=== PATIENT | female | born 1945 | race Caucasian/White ===

== ENCOUNTER 2019-02-06 21:01 | Outpatient (REF) | payer OTHER, SELFPAY ==
[2019-02-06 21:32] LABS: Creatinine,Urine 70.54 mg/dL
[2019-02-06 21:42] LABS: COMMENT (LAB VIEW ONLY) 69.92 mg/dL
== END 2019-02-06 21:21 ==
LOC: NCHCN 21:01
PROVIDERS: Visit Provider Nurse Practitioner Family
DX: N39.0 Urinary tract infection, site not specified (principal)
CPT/HCPCS: 82043; 82565; 82570

== ENCOUNTER 2019-04-11 18:30 | Outpatient (REF) | payer OTHER, SELFPAY | END 2019-04-11 18:50 | LOC: NCHCN 18:30 | PROVIDERS: Visit Provider Nurse Practitioner Family | DX: R82.90 Unspecified abnormal findings in urine (principal) | CPT/HCPCS: 87086 ==

== ENCOUNTER 2019-10-08 14:00 | Outpatient (REF) | payer MEDICARE, OTHER, SELFPAY ==
[2019-10-08 21:16] LABS: WBC 20-50 HPF (0-5)
[2019-10-08 21:17] LABS: C & S Indicated? C&S Done As Ordered; Epithelial Cells Moderate HPF (Negative); RBC >50 HPF (0-2)
== END 2019-10-08 14:20 ==
LOC: NCHCN 14:00
PROVIDERS: Visit Provider Nurse Practitioner Family
DX: R31.9 Hematuria, unspecified (principal)
CPT/HCPCS: 81015; 87086

== ENCOUNTER 2020-08-22 18:44 | Outpatient (REF) | payer MEDICARE, SELFPAY | END 2020-08-22 18:45 | disposition home or self-care (01) | LOC: NCHCN 18:44 | PROVIDERS: PCP Registered Nurse; Visit Provider Nurse Practitioner Family | DX: R35.0 Frequency of micturition (principal) | CPT/HCPCS: 87086 ==

== ENCOUNTER 2020-12-17 18:04 | Outpatient (REF) | payer MEDICARE, SELFPAY | END 2020-12-17 18:05 | disposition home or self-care (01) | LOC: NCHCN 18:04 | PROVIDERS: PCP Registered Nurse; Visit Provider Nurse Practitioner Family | DX: N39.0 Urinary tract infection, site not specified (principal) | CPT/HCPCS: 87086 ==

== ENCOUNTER 2021-05-01 13:46 | Outpatient (REF) | payer MEDICARE, SELFPAY | END 2021-05-01 13:47 | disposition home or self-care (01) | LOC: NCHCN 13:46 | PROVIDERS: PCP Registered Nurse; Visit Provider Nurse Practitioner Family | DX: R35.0 Frequency of micturition (principal) | CPT/HCPCS: 87086 ==

== ENCOUNTER 2021-07-15 15:09 | Outpatient (REF) | payer MEDICARE, SELFPAY ==
[2021-07-15 21:37] LABS: Iron 93 ug/dL (50-170); Total Iron Binding Capacity 287 ug/dL (250-450); Transferrin Sat 32 % (15-50)
[2021-07-15 21:46] LABS: Abs Immature Grans 0.01 10^3/uL (0.0-0.06); Absolute Basophil Count 0.05 10^3/uL (0.0-0.2); Absolute Eosinophil Count 0.06 10^3/uL (0.0-0.7); Absolute Lymphocyte Count 0.95 10^3/uL (1.2-3.4); Absolute Monocyte Count 0.22 10^3/uL (0.1-0.8); Absolute Neutrophil Count 1.37 10^3/uL (1.2-6.7); Basophils % 1.9; Eosinophils % 2.3; HCT 32.6 % (36.0-46.0); HGB 10.7 g/dL (11.2-15.7); Immature Grans % 0.4; Lymphocytes % 35.7; MCH 37.3 pg (27.0-33.0); MCHC 32.8 % (32.0-36.0); MCV 114 fL (80-95); MPV 11.8 fL (8.0-11.0); Monocytes % 8.3; Neutrophils % 51.4; Platelet Count 344 10^3/uL (130-400); RBC 2.87 10^6/uL (3.93-5.22); RDW 13.1 % (11.7-14.6); RDW-SD 54.7 fL; WBC 2.66 10^3/uL (4.4-10.8)
[2021-07-15 21:59] LABS: Ferritin 135 ng/mL (8-252); TSH (W/Ref FT4) 2.32 uIU/mL (0.36-3.74); Vitamin B12 470 pg/mL (193-986)
[2021-07-15 22:00] LABS: Folate > 20.0 ng/mL (8.6-20.0)
[2021-07-15 22:39] LABS: Diff Comment RBC Morph Reviewed; Macrocytosis 3+
== END 2021-07-15 15:10 | disposition home or self-care (01) ==
LOC: NCHCN 15:09
PROVIDERS: PCP Registered Nurse; Visit Provider Nurse Practitioner Family
DX: D53.9 Nutritional anemia, unspecified (principal); I10 Essential (primary) hypertension; F80.89 Other developmental disorders of speech and language
CPT/HCPCS: 82607; 82728; 82746; 83540; 83550; 84443; 85025

== ENCOUNTER 2021-09-18 20:57 | Outpatient (REF) | payer MEDICARE, SELFPAY ==
[2021-09-18 15:50] LABS: Absolute Basophil Count 0.05 10^3/uL (0.0-0.2); Absolute Eosinophil Count 0.05 10^3/uL (0.0-0.7); Absolute Lymphocyte Count 0.75 10^3/uL (1.2-3.4); Absolute Monocyte Count 0.17 10^3/uL (0.1-0.8); Absolute Neutrophil Count 1.18 10^3/uL (1.2-6.7); Basophils % 2.3; Eosinophils % 2.3; HCT 31.6 % (36.0-46.0); HGB 10.5 g/dL (11.2-15.7); Lymphocytes % 34.1; MCHC 33.2 % (32.0-36.0); MCV 115 fL (80-95); MPV 12.5 fL (8.0-11.0); Monocytes % 7.7; Neutrophils % 53.6; Platelet Count 270 10^3/uL (130-400); RBC 2.76 10^6/uL (3.93-5.22); RDW 13.3 % (11.7-14.6); RDW-SD 55.8 fL
[2021-09-18 18:02] LABS: Diff Comment RBC Morph Reviewed; Macrocytosis 2+
== END 2021-09-18 20:58 | disposition home or self-care (01) ==
LOC: NCHCN 20:57
PROVIDERS: PCP Registered Nurse; Visit Provider Nurse Practitioner Family
DX: D53.9 Nutritional anemia, unspecified (principal)
CPT/HCPCS: 85025; 85045

== ENCOUNTER 2022-03-31 16:28 | Outpatient (REF) | payer MEDICARE, SELFPAY ==
[2022-03-31 21:17] LABS: HCT 30.3 % (36.0-46.0); HGB 10.2 g/dL (11.2-15.7); MCH 39.4 pg (27.0-33.0); MCHC 33.7 % (32.0-36.0); MCV 117 fL (80-95); MPV 12.2 fL (8.0-11.0); Platelet Count 271 10^3/uL (130-400); RBC 2.59 10^6/uL (3.93-5.22); RDW 12.8 % (11.7-14.6); WBC 3.01 10^3/uL (4.4-10.8)
[2022-03-31 21:54] LABS: ALT 14 U/L (14-59); AST 21 U/L (15-37); Albumin 3.7 g/dL (3.4-5.0); Alkaline Phosphatase 64 U/L (46-116); Anion Gap 8.9 mmol/L (3-11); BUN 17 mg/dL (7-18); Bilirubin, Total 0.4 mg/dL (0.2-1.0); CO2 27.1 mmol/L (21.0-32.0); CREATININE 0.8 mg/dL (0.55-1.02); Calcium 9.4 mg/dL (8.5-10.1); Chloride 105 mmol/L (98-107); Glucose 89 mg/dL (74-106); Sodium 141 mmol/L (136-145); Total Protein 7.3 g/dL (6.4-8.2)
== END 2022-03-31 16:29 | disposition home or self-care (01) ==
LOC: NCHCN 16:28
PROVIDERS: PCP Registered Nurse; Visit Provider Nurse Practitioner Family
DX: I10 Essential (primary) hypertension (principal); D53.9 Nutritional anemia, unspecified
CPT/HCPCS: 80053; 85027

== ENCOUNTER 2022-07-22 19:57 | Outpatient (REF) | payer MEDICARE, SELFPAY ==
[2022-07-22 20:21] LABS: Bilirubin Negative (Negative); Blood Moderate (Negative); Clarity Cloudy (Clear); Glucose Negative (Negative); Ketones Negative (Negative); Leukocyte Esterase Large (Negative); Nitrite Negative (Negative); Specific Gravity 1.015 (1.005-1.025); Urobilinogen 0.2 mg/dL (Up to 0.2)
[2022-07-22 20:38] LABS: Bacteria Many HPF (Negative); C & S Indicated? Yes; Casts Negative LPF (Negative); Crystals Negative HPF (Negative); Epithelial Cells Few HPF (Negative); Mucus Trace (Negative); WBC >50 HPF (0-5)
== END 2022-07-22 19:58 | disposition home or self-care (01) ==
LOC: NCHCN 19:57
PROVIDERS: PCP Registered Nurse; Visit Provider Nurse Practitioner Family
DX: R33.9 Retention of urine, unspecified (principal); N39.0 Urinary tract infection, site not specified
CPT/HCPCS: 87077; 81003; 81015; 87086; 87186

== ENCOUNTER 2022-08-05 19:37 | Outpatient (REF) | payer MEDICARE, SELFPAY | END 2022-08-05 19:38 | disposition home or self-care (01) | LOC: NCHCN 19:37 | PROVIDERS: PCP Registered Nurse; Visit Provider Family Medicine | DX: R10.31 Right lower quadrant pain (principal); R82.998 Other abnormal findings in urine | CPT/HCPCS: 87077; 87086; 87186 ==

== ENCOUNTER 2022-08-10 18:05 | Outpatient (REF) | payer MEDICARE, SELFPAY ==
[2022-08-10 21:54] LABS: ALT 18 U/L (14-59); AST 18 U/L (15-37); Albumin 3.6 g/dL (3.4-5.0); Alkaline Phosphatase 67 U/L (46-116); Anion Gap 9.8 mmol/L (3-11); BUN 16 mg/dL (7-18); Bilirubin, Total 0.5 mg/dL (0.2-1.0); CO2 25.2 mmol/L (21.0-32.0); CREATININE 0.7 mg/dL (0.55-1.02); Calcium 9.2 mg/dL (8.5-10.1); Chloride 96 mmol/L (98-107); Estimated GFR 87.92 (mL/min/1.73m2); Glucose 96 mg/dL (74-106); Potassium 3.9 mmol/L (3.5-5.1); Sodium 131 mmol/L (136-145); Total Protein 7.4 g/dL (6.4-8.2)
== END 2022-08-10 18:06 | disposition home or self-care (01) ==
LOC: NCHCN 18:05
PROVIDERS: PCP Registered Nurse; Visit Provider Nurse Practitioner Family
DX: I10 Essential (primary) hypertension (principal); K59.00 Constipation, unspecified; R19.04 Left lower quadrant abdominal swelling, mass and lump
CPT/HCPCS: 80053

== ENCOUNTER 2022-10-28 20:32 | Outpatient (REF) | payer MEDICARE, SELFPAY ==
[2022-10-28 21:51] LABS: Vitamin D 25 Total 49.7 ng/mL (30-100)
[2022-11-01 09:11] LABS: Parathyroid Hormone,Intact 41 pg/mL (19-88)
== END 2022-10-28 20:33 | disposition home or self-care (01) ==
LOC: NCHCN 20:32
PROVIDERS: PCP Registered Nurse; Visit Provider Nurse Practitioner Family
DX: M81.0 Age-related osteoporosis without current pathological fracture (principal)
CPT/HCPCS: 82306; 83970

== ENCOUNTER 2022-12-02 12:02 | Outpatient (REF) | payer MEDICARE, SELFPAY | END 2022-12-02 12:03 | disposition home or self-care (01) | LOC: NCHCN 12:02 | PROVIDERS: PCP Registered Nurse; Visit Provider Family Medicine | DX: R30.0 Dysuria (principal) | CPT/HCPCS: 87077; 87186; 87086 ==

== ENCOUNTER 2023-11-02 18:08 | Outpatient (REF) | payer MEDICARE, SELFPAY ==
[2023-11-02 22:02] LABS: Anion Gap 8.3 mmol/L (3-11); BUN 22 mg/dL (7-18); CO2 24.7 mmol/L (21.0-32.0); CREATININE 0.8 mg/dL (0.55-1.02); Calcium 9.3 mg/dL (8.5-10.1); Chloride 107 mmol/L (98-107); Estimated GFR 74.44 (mL/min/1.73m2); Glucose 103 mg/dL (74-106); Sodium 140 mmol/L (136-145)
== END 2023-11-02 18:09 | disposition home or self-care (01) ==
LOC: NCHCN 18:08
PROVIDERS: PCP Registered Nurse; Visit Provider Internal Medicine
DX: R33.9 Retention of urine, unspecified (principal); R35.0 Frequency of micturition
CPT/HCPCS: 80048; 87086

== ENCOUNTER 2023-11-07 21:08 | Outpatient (REF) | payer MEDICARE, SELFPAY | END 2023-11-07 21:09 | disposition home or self-care (01) | LOC: NCHCN 21:08 | PROVIDERS: PCP Registered Nurse; Visit Provider Nurse Practitioner Family | DX: R33.9 Retention of urine, unspecified (principal) | CPT/HCPCS: 87086 ==

== ENCOUNTER 2023-12-27 23:59 | Outpatient (REF) | payer MEDICARE, SELFPAY | END 2023-12-28 | disposition home or self-care (01) | LOC: NCHCN 23:59 | PROVIDERS: PCP Registered Nurse; Visit Provider Family Medicine | DX: N30.00 Acute cystitis without hematuria (principal) | CPT/HCPCS: 87077; 87086; 87186 ==

== ENCOUNTER 2024-04-03 17:34 | Outpatient (REF) | payer MEDICARE, SELFPAY | END 2024-04-03 17:35 | disposition home or self-care (01) | LOC: NCHCN 17:34 | PROVIDERS: PCP Registered Nurse; Visit Provider Family Medicine | DX: R35.0 Frequency of micturition (principal); B96.29 Other Escherichia coli [E. coli] as the cause of diseases classified elsewhere | CPT/HCPCS: 87077; 87086; 87186 ==

== ENCOUNTER 2024-06-20 11:41 | Outpatient (REF) | payer MEDICARE, SELFPAY ==
[2024-06-20 15:27] LABS: HCT 29.7 % (36.0-46.0); HGB 9.8 g/dL (11.2-15.7); MCH 38.9 pg (27.0-33.0); MPV 11.7 fL (8.0-11.0); Platelet Count 367 10^3/uL (130-400); RBC 2.52 10^6/uL (3.93-5.22); RDW 13.4 % (11.7-14.6); RDW-SD 57.9 fL; WBC 3.51 10^3/uL (4.4-10.8)
[2024-06-20 15:51] LABS: BUN 17 mg/dL (7-18); CREATININE 0.9 mg/dL (0.55-1.02); Calcium 9.3 mg/dL (8.5-10.1); Chloride 103 mmol/L (98-107); Estimated GFR 64.23 (mL/min/1.73m2); Glucose 120 mg/dL (74-106); Potassium 4.1 mmol/L (3.5-5.1); Sodium 139 mmol/L (136-145)
[2024-06-20 16:03] LABS: MCV 118 fL (80-95)
[2024-06-20 16:43] LABS: Calculated LDL 54 mg/dL (<100); Cholesterol 127 mg/dL (<200); HDL Cholesterol 65 mg/dL (>or=50); Triglyceride 41 mg/dL (<150); Vitamin D 25 Total 52 ng/mL (30-100)
== END 2024-06-20 11:42 | disposition home or self-care (01) ==
LOC: NCHCN 11:41
PROVIDERS: PCP Registered Nurse; Visit Provider Nurse Practitioner Family
DX: E78.5 Hyperlipidemia, unspecified (principal); M81.0 Age-related osteoporosis without current pathological fracture
CPT/HCPCS: 80048; 80061; 82306; 85027